=== PATIENT | male | born 1970 | race Caucasian/White ===

== ENCOUNTER → 2021-09-12 11:12 | Outpatient (CLI) | payer OTHER, MEDICAID, SELFPAY ==
--- NOTE | 2021-09-12 11:16 | DI.NM.S_ITS ---
PROCEDURE: NM EXERCISE TREADMILL NON NUC COMPARISON: None. INDICATIONS: Chest pain, unspecified FINDINGS: Resting ECG sinus rhythm. Asad protocol 10 minutes, 33 seconds; 12.8 METS; BRADY -5%. Maximum heart rate 162 bpm, 97% peak predicted. Maximum blood pressure 178/82. Patient had maximum 3/10 chest pain with exercise. Stress ECG sinus tachycardia, 1 to 2 mm horizontal to upsloping ST segment depression in leads II, III, aVF and V4 through V6. IMPRESSION: 1. Abnormal stress ECG with horizontal to upsloping ST segment depressions which could be consistent with inducible ischemia. 2. Excellent exercise capacity however. 3. Normal blood pressure response to exercise. 4. If clinically indicated, consider repeat stress testing with imaging such as echocardiography. Dictated by: Lizzette Kothari D.O. on 09/13/2021 at 14:31 Approved by: Lizzette Kothari M.D. on 09/13/2021 at 14:40
== END ==
PROVIDERS: PCP Student in an Organized Health Care Education/Training Program; Referring Provider Student in an Organized Health Care Education/Training Program; Visit Provider Student in an Organized Health Care Education/Training Program
DX: R07.9 Chest pain, unspecified (principal); R94.39 Abnormal result of other cardiovascular function study
CPT/HCPCS: 93017